=== PATIENT | female | born 1950 | race Caucasian/White ===

== ENCOUNTER → 2017-01-28 | Outpatient (CLI) | payer OTHER ==
[~2017-01-28] MED LIST: ASCA500 PO; B-COTAB18 PO; CHOL20007 PO; DESITIN TOP; DIGE1CAP10 PO; ECHINACEA PO; FLAX1CAP11 PO; IBUP-1050 PO; MULT-513 PO; [UNRECOGNIZED DRUG - OTHER]
--- NOTE | 2017-01-29 07:56 | MAMMOGRAPHY REPORT ---
UNILATERAL RIGHT DIGITAL SCREENING MAMMOGRAM TOMOSYNTHESIS WITH CAD: 01/28/2017 CLINICAL HISTORY: Asymptomatic. Personal history of breast cancer. TECHNIQUE: Breast tomosynthesis in addition to standard 2D mammography was performed. Current study was also evaluated with a Computer Aided Detection (CAD) system. Right CC and MLO 2-D and tomosynt hesis images were obtained. COMPARISON: Comparison is made to exams dated: 02/06/2016 mammogram, 01/12/2015 mammogram, 01/02/2014 mammogram, 12/30/2012 mammogram, 07/01/2012 mammogram, and 12/10/2011 mammogram - [facility] enter. BREAST COMPOSITION: There are scattered areas of fibroglandular density in the right breast. FINDINGS: There are no suspicious masses, calcifications, or areas of architectural distortion noted in either breast. There has been no significant interval change compared to prior exams. Small be nign-appearing masses in the right upper outer quadrant are stable compared to prior exams. IMPRESSION: ACR BI-RADS CATEGORY 2: BENIGN There is no mammographic evidence of malignancy. A 1 year screening mammogram is recommended. The p atient will receive written notification of the results. Approximately 10% of breast cancers are not detected with mammography. A negative mammographic repor t should not delay biopsy if a clinically suggestive mass is present. Sole Law M.D. /:01/28/2017 15:25:47 House Decorator: Christy LAWSON)(Hu), [facility] letter sent: Normal 1/2 BI-RADS Code: ACR BI-RADS Category 2: Benign
== END | disposition home or self-care (01) ==
LOC: C.MAMM 12:43
PROVIDERS: ATTEND Family Medicine
DX: Z12.31 Encounter for screening mammogram for malignant neoplasm of breast (principal); Z90.12 Acquired absence of left breast and nipple; Z85.3 Personal history of malignant neoplasm of breast; Z08 Encounter for follow-up examination after completed treatment for malignant neoplasm

== ENCOUNTER 2017-02-10 06:37 | Day surgery (SDC) | payer OTHER ==
[2017-02-09 15:13] VITALS: BMI 38.0
[~2017-02-10] VITALS: Ht 154.9 cm; Wt 90.9 kg
[~2017-02-10 06:37] MED LIST changes: +LACTATED RINGER'S 1000ML 1,000 ML IV SCH
[2017-02-10] MEDS ORDERED: DEXAMETHASONE SOD INJ 4 MG/ML VIAL ONE (06:39)
[2017-02-10] MEDS ORDERED: NEOSTIGMINE METHYLSULFATE 5 MG/5 ML SYR ONE (06:39)
[2017-02-10] MEDS ORDERED: ROCURONIUM BROMIDE 10 MG/ML 5 ML VIAL ONE (06:39)
[2017-02-10] MEDS ORDERED: LIDOCAINE HCL 2% 2 ML VIAL (20MG/ML) ONE ×2 (06:39→06:44)
[2017-02-10] MEDS ORDERED: GLYCOPYRROLATE INJ 0.2 MG/ML VIAL ONE ×2 (06:39→06:44)
[2017-02-10] MEDS ORDERED: FENTANYL CITRATE INJ 50 MCG/1 ML 2 ML VIAL ONE (06:39)
[2017-02-10] MEDS ORDERED: PROPOFOL IV EMULSION 10 MG/ML 20 ML VIAL IV ONE (06:39)
[2017-02-10] MEDS ORDERED: ONDANSETRON INJ 2 MG/ML 2 ML VIAL ONE (06:39)
[2017-02-10] MEDS ORDERED: MIDAZOLAM HCL 1 MG/ML 2ML VIAL ONE ×2 (06:39→10:43)
--- NOTE | 2017-02-10 06:54 | History and Physical ---
History & Physical Date Feb 10, 2017. Chief Complaint Abnormal PET scan possible carcinoma History of Present Illness The patient is a 67 year old female with complaints of abnormal PET scan 7-year-old female here for follow-up on abnormal PET scan Very pleasant patient who is accompanied by her today here for follow- up on abnormal PET scan with diffuse mediastinal lymphadenopathy and high SUV avidity. Patient does have a previous history breast carcinoma undergoing left mastectomy in November 2012. During her follow-up she was noted to have abnormal findings with PET scan performed. Presenting today she denies fever, chills, weight loss, pleurisy, cardiac chest pain, productive cough or any signs of chronic illness. History 1. Breast cancer diagnosed 2011: Left mastectomy did not undergo radiation or chemotherapy 2. Family history Brother: Colonic CA Sister: Breast carcinoma Brother: Lung cancer Mother: History of tuberculosis Patient has been evaluated in the past with PPD as well as controlled notably negative/within normal limits. [id number] Additional History Hepatic Disease: No Endocrine Disorder: No Kidney Disease: No Hypertension: No Heart Disease: No Bleeding Tendencies: No Infectious Diseases: No Allergies Coded Allergies: Diphenhydramine (Verified Allergy, Unknown, "MAKES ME HYPER", 02/09/17) Fish (Verified Allergy, Unknown, NAUSEATED AND LIGHT HEADED, 02/09/17) Sulfa Antibiotics (Verified Allergy, Unknown, RASH, 02/09/17) Home Medications Scheduled Ascorbic Acid (Vitamin C *), 500 MG PO QDL B-Complex Vitamins (Vitamin B Complex), 1 TAB PO QAM Cholecalciferol (Vitamin D3), 5,000 INTUNIT PO QAM Digestive Enzymes (Digestive Enzyme), 1 CAP PO TID Flaxseed (Linseed) (Flax Seed Oil), 2 CAP PO LUNCH Multivitamins/Minerals (Mvi With Minerals), 1 TAB PO QDL [Echinacea], 2 CAP PO QDL Miscellaneous Medications [Carrot Juice ], 1 Physical Examination Skin: warm/dry, no rash Eyes: normal inspection, EOMI, sclerae normal ENT: normal ENT inspection, pharynx normal Head: normocephalic, atraumatic Neck: supple, no adenopathy, trachea midline Respiratory/Chest: lungs clear, normal breath sounds, no respiratory distress Cardiovascular: regular rate, rhythm, no edema, no murmur Abdomen / GI: normal bowel sounds, non tender Back: normal inspection Extremities: normal inspection, normal range of motion Neurologic/Psych: no motor/sensory deficits, alert, normal reflexes, oriented x 3 Diagnosis PET avid mediastinum possible carcinoma ASA Classification: ASA Class II Plan of Treatment EBUS with TBNA, TTNA, flexible bronchoscopy, BAL, intra-bronchial bx
[2017-02-10 07:00] VITALS: BP 167/72; PULSE 92; TEMP 37.1; O2SAT 99; Ht 154.9 cm; Wt 90.9 kg
[2017-02-10] MEDS ORDERED: PROPOFOL IV EMULSION 10 MG/ML 100 ML VIAL IV ONE (07:05)
[2017-02-10] MEDS ORDERED: LACTATED RINGER'S 1000ML 1,000 ML IV PRN (08:37)
[2017-02-10] MEDS ORDERED: FENTANYL CITRATE INJ 50 MCG/1 ML 2 ML VIAL IV PRN (08:45)
[2017-02-10] MEDS ORDERED: ONDANSETRON INJ 2 MG/ML 2 ML VIAL IV PRN (08:45)
[2017-02-10] MEDS ORDERED: EpHEDrine SULFATE 50MG/5ML SYR ONE (09:55)
--- NOTE | 2017-02-10 10:59 | Procedure Note ---
Post-Moderate Sedation Plan General Date of Moderate Sedation Feb 10, 2017. Vital Signs: Vital Signs Past 12 Hours Date Time Temp Pulse Resp B/P Pulse Ox O2 Delivery O2 Flow Rate FiO2 02/10/17 07:00 37.1 92 18 167/72 99 Room Air Review - Discharge Plan Post Moderate Sedation Plan: On clinical assessment, the patient appears to have tolerated the conscious sedation without complications. Patient is recovering as anticipated. Patient will continue to be monitored by nursing and may be discharged when conscious sedation discharge criteria are met.
--- NOTE | 2017-02-10 11:02 | Bronchoscopy Procedure Note ---
Bronchoscopy Procedure Note Procedure: Flexible-Bronchoscopy, EBUS, TTNA,TBNA,BAL Consent: Obtained through the patient placed into the chart Preprocedural diagnosis: Mediastinal PET avid adenopathy Postprocedural diagnosis: Sarcoidosis Analgesia: GETA Sedation: GETA Procedure: The Olympus video bronchoscope and EBUS scope were used for this procedure Initially the flexible bronchoscope was used for evaluation of the airways. The ET tube was notably 4cm above the level of the lesa. Trachea: Visualized portion of the trachea was anatomically within normal limits Lesa: Anatomically within normal limits Right bronchial tree: Right mainstem bronchus: Anatomically within normal limits Right upper lobe: Anatomically within normal limits Bronchus intermedius: Anatomically within normal limits Right middle lobe: Anatomically within normal limits Right lower lobe: Anatomically within normal limits Findings: No significant findings noted Left bronchial tree: Left mainstem bronchus: Anatomically within normal limits Left upper lobe: Anatomically within normal limits Lingula: Anatomically within normal limits Left lower lobe: Anatomically within normal limits Findings: No significant findings noted EBUS/ALLYN: Tbbx Nick Stations: 7: # of passes 3 : All having good lymphocytic tissue R4: # of passes passes 3: All having good lymphocytic tissue L4: # of passes 3: All having good lymphocytic tissue Complications: None Diagnosis: Initial diagnosis is sarcoidosis Follow-up: Follow-up in PACU
--- NOTE | 2017-02-10 11:21 | Anesthesiology Progress Note ---
Anesthesia Post Op Note Date & Time Feb 10, 2017 at 11:20 Vital Signs Pain Intensity: 0 Vital Signs Past 12 Hours Date Time Temp Pulse Resp B/P Pulse Ox O2 Delivery O2 Flow Rate FiO2 02/10/17 11:10 68 20 129/67 98 Mask 10 02/10/17 11:00 66 12 99/70 100 Mask 10 02/10/17 10:51 36.2 81 16 131/66 100 Mask 10 02/10/17 07:00 37.1 92 18 167/72 99 Room Air Notes Mental Status: alert / awake / arousable, participated in evaluation Pt Amnestic to Procedure: Yes Nausea / Vomiting: adequately controlled Pain: adequately controlled Airway Patency, RR, SpO2: stable & adequate BP & HR: stable & adequate Hydration State: stable & adequate Anesthetic Complications: no major complications apparent Pt doing well.
[2017-02-10 11:45] VITALS: BP 137/68; PULSE 66; TEMP 37; O2SAT 95
--- NOTE | 2017-02-10 11:52 | Discharge Instructions ---
Discharge Instructions Date of Service Feb 10, 2017. 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 Instructions / Follow-Up Instructions / Follow-Up Patient is to follow up in the [place] [facility] Current Hospital Diet Patient's current hospital diet: Discharge Diet Recommended Diet: Regular Diet Procedures Procedures Performed: Transtracheal Needle Aspiraton, Transtracheal Bronchial Aveolar Lavage, Bronchial Washing Pending Studies Studies pending at discharge: yes List of pending studies: Microbiology, fungal analysis, AFB analysis, flow cytometry and cytopathology pending Medical Emergencies . Who to Call and When: Medical Emergencies: If at any time you feel your situation is an emergency, please call 911 immediately. . Non-Emergent Contact Non-Emergency issues call your: Dryer Feeder Call Non-Emergent contact if: temperature is above 101.5 . . "Provider Documentation" section prepared by Cricket Moore. VTE Core Measure Inpt VTE Proph given/why not?: Treatment not indicated
[2017-02-10 12:15] VITALS: BP 150/67; PULSE 79; O2SAT 95
[2017-02-10 12:35] VITALS: BP 150/67; PULSE 68; O2SAT 96
[2017-03-09 21:19] LABS: HERPES SIMPLEX CULT SOURCE OTHER-BAL RUL; HERPES SIMPLEX VIRUS CULT NOT ISOLATED (NOT ISOLATED)
== END 2017-02-10 12:35 | disposition home or self-care (01) ==
LOC: C.ACU 06:37
PROVIDERS: ATTEND Internal Medicine Critical Care Medicine
DX: D86.9 Sarcoidosis, unspecified (principal); R59.0 Localized enlarged lymph nodes; R94.8 Abnormal results of function studies of other organs and systems; Z85.3 Personal history of malignant neoplasm of breast; Z88.1 Allergy status to other antibiotic agents; Z88.2 Allergy status to sulfonamides; Z90.10 Acquired absence of unspecified breast and nipple; E66.9 Obesity, unspecified; Z68.37 Body mass index [BMI] 37.0-37.9, adult; Z80.0 Family history of malignant neoplasm of digestive organs; Z82.49 Family history of ischemic heart disease and other diseases of the circulatory system